=== PATIENT | male | born 1980 | race Caucasian/White ===

== ENCOUNTER 2023-05-26 15:31 | Emergency (ER) | payer SELFPAY ==
[~2023-05-26] VITALS: Ht 182.9 cm; Wt 92.0 kg
[2023-05-26 15:36] VITALS: O2SAT 97
[2023-05-26] MEDS ORDERED: SODIUM CHLORIDE 0.9% 1,000 ML IV ONE (16:00)
[2023-05-26 20:16] VITALS: BP 125/76; PULSE 69; RESP 16; TEMP 97.8
== END 2023-05-26 20:18 | disposition home or self-care (01) ==
LOC: ER 15:31
DX: F10.129 Alcohol abuse with intoxication, unspecified (principal); Y90.0 Blood alcohol level of less than 20 mg/100 ml
CPT/HCPCS: 99283; J7030; Z7610